=== PATIENT | male | born 1995 | race Caucasian/White ===

== ENCOUNTER 2024-02-19 12:48 | Inpatient (IN) ==
--- NOTE | 2024-02-19 12:58 | Emergency Department Note ---
Impression & Plan Seizure, Acidosis, Hypermagnesuria ED Provider Note NAME: JANIE JASON AGE: 28 SEX: M : 1995 ARRIVES VIA: Ambulance INFORMANT: Patient ED PROVIDER(S): Savage Aldridge DO CHIEF COMPLAINT: seizure HPI: Patient is a 28-year-old male who presents to the ER for seizure. Per EMS who provides the history patient had a seizure on his way to work and another 1 while at work. EMS was transporting him and he had a third seizure. He did not receive any medications. Seizures all lasted under a minute. History is limited as patient is postictal at this time. Patient later woke up and notes that he feels postictal. This does not feel different than his typical seizures. He notes he did have several. Last seizure he thinks was somewhere in September. Mom provides additional history and believes that he did have 1 in early January. Patient is unsure of whether he took 500 of Keppra unintentionally instead of the prescribed 1 g. Otherwise he feels as though he has been taking his medications. ADDITIONAL HISTORY OBTAINED: Per HPI Chronic Medical/Social Conditions Affecting Care: Per HPI PAST MEDICAL HISTORY:See Below PAST SURGICAL HISTORY:See Below FAMILY HISTORY:See Below SOCIAL HISTORY:See Below HOME MEDICATIONS:See Below ALLERGIES:See Below VITALS:See Below PHYSICAL EXAMINATION: GENERAL: Sitting up in bed, alert, confused, moving all extremities EYE EXAM: normal conjunctiva. PERRL and EOM's grossly intact. OROPHARYNX: mucous membranes are moist NECK: supple, no nuchal rigidity, no adenopathy, non-tender LUNGS: Clear to auscultation. Normal chest wall mechanics HEART: no murmurs, S1 normal and S2 normal ABDOMEN: abdomen soft, non-tender, normo-active bowel sounds, no masses, no rebound or guarding. BACK: Back is symmetrical on inspection and there is no deformity, no midline tenderness, no CVA tenderness. SKIN: no rashes and no bruising UPPER EXTREMITIES: upper extremities are grossly normal. LOWER EXTREMITIES: No pitting edema. NEURO EXAM: Oriented to person but not place or time, cranial nerves II-XII grossly intact, normal speech, no gross weakness of arms, no gross weakness of legs. MEDICAL DECISION MAKING: Patient is a 13Y 8-year-old male with a past medical history of seizure disorder who presents to the ER for the above-stated complaint. IV was established medicos obtained. Labs show no significant leukocytosis or anemia. BMP with a CO2 of 15 which was gap likely secondary to recent seizure. LFTs bilirubin is unremarkable. Troponin was negative lipase is normal. Patient was given a gram of Keppra. Updated at bedside. With the 3 seizures today patient was discussed with the hospitalist for further evaluation management treatment. Consults/Care Managements Discussions: Per MDM Triage Nursing notes reviewed. Limited review of prior medical records performed Vital Signs: reviewed and remarkable for no significant abnormalities Differential diagnosis: Differential diagnosis includes etiologies such as infection, hypoglycemia, electrolyte abnormalities, cardiac sources, intracerebral event, trauma, toxicologic, neurologic, as well as others were entertained. ER treatment provided: See below Diagnostics interpreted by me include EKG and cardiac monitoring as listed below: -Cardiac Monitoring: An order was placed for continuous cardiac monitoring. The monitor shows a rate of 70 with sinus rhythm. -ECG: Sinus rhythm rate of 105 Normal axis No PVCs QTc 452 -Laboratory studies:Interpreted by me as stated above in MDM and shown below. Imaging studies: Xrays: As interpreted by me: Portable AP upright 1 view of the chest shows no focal infiltrate CTs show: none Procedures:none Critical Care: None Past Med/Surg History Problem List (Updated 02/19/24 @ 16:29 by Savage Aldridge DO) Hypermagnesuria (Acute) Acidosis (Acute) Asthma Seizure (Acute) Seizure disorder Depression Medical History No significant past medical history Surgical History No significant past surgical history Family History Father Hyperthyroidism Grandmother Breast cancer Grandfather (Maternal) Brain cancer Lung cancer Grandfather Afib Anxiety Depression Alcohol abuse Grandmother Hypertension Lung cancer Dyslipidemia Mother Anxiety Social History (System 02/19/24 @ 16:00 by Radha Mcmanus) Smoking Status: Current every day smoker Tobacco Type: Cigarettes and E-cigarettes / Vaping Second Hand Exposure: No; Do You Dip or Chew Tobacco: No; Hx Alcohol Use: Yes Hx Substance Use: Yes Preferred Language: Tuvaluan Communication Ability: Effective Visual Impairment: Limited Hearing Ability: Normal marital status: Single Current Living Situation: Alone current occupational status: employed Feels Safe at Home: Yes Childhood Exposure to Second-Hand Smoke: No Diet: regular Dental Care, Regularly: Yes Physical Activity Frequency: Does not Exercise Physical Activity Frequency Comment: active lifestyle Seatbelt Use: always Sunscreen Use: No (while at the beach) Allergies Allergies Allergy/AdvReac Type Severity Reaction Status Date / Time No Known Allergies Allergy Unverified 02/19/24 16:00 Home Meds Home Medications Medication Instructions Recorded Confirmed albuterol sulfate 90 mcg/actuation 2 puff inhalation QID PRN 11/05/18 10/03/23 aerosol inhaler Shortness Of Breath Or Wheezing montelukast 10 mg tablet 10 mg PO PM 11/05/18 10/03/23 (Singulair) albuterol sulfate 90 mcg/actuation 2 puff inhalation Q4H PRN 02/19/24 02/19/24 aerosol inhaler sob/wheezing levetiracetam 1,000 mg tablet 1,000 mg PO BID 02/19/24 02/19/24 montelukast 10 mg tablet 10 mg PO PM 02/19/24 02/19/24 Results & Data (ED) Vital Signs Vital Signs - 24 hr 02/19/24 13:06 02/19/24 13:06 02/19/24 13:06 Temperature 36.8 C Temperature Source Oral Pulse Rate 100 H 100 H Pulse Rate [Apical] Pulse Rhythm Regular Regular Pulse Rhythm [Apical] Pulse Strength Normal Pulse Strength [Apical] Respiratory Rate 20 20 Respiratory Effort / Characteristics Non-Labored Spontaneous Respiratory Depth Normal Respiratory Pattern Regular Blood Pressure 130/85 Blood Pressure [Left Arm] Blood Pressure Mean 100 Blood Pressure Mean [Left Arm] Blood Pressure Position Semi-fowlers Blood Pressure Position [Left Arm] Pulse Oximetry 98 96 96 Oxygen Delivery Method Room Air Room Air Room Air Sepsis Recent Fever Within 48 Hours No Sepsis New/Unexplained Change in Mental Status N/A Sepsis Action Taken by Nursing No Action Required 02/19/24 13:13 02/19/24 14:34 02/19/24 15:46 Temperature Temperature Source Pulse Rate 104 H Pulse Rate [Apical] 96 H 69 Pulse Rhythm Pulse Rhythm [Apical] Regular Regular Pulse Strength Pulse Strength [Apical] Normal Normal Respiratory Rate 18 14 Respiratory Effort / Characteristics Non-Labored Spontaneous Non-Labored Spontaneous Respiratory Depth Normal Normal Respiratory Pattern Regular Regular Blood Pressure Blood Pressure [Left Arm] 129/75 Blood Pressure Mean Blood Pressure Mean [Left Arm] 93 Blood Pressure Position Blood Pressure Position [Left Arm] Lying Pulse Oximetry 99 99 Oxygen Delivery Method Room Air Room Air Sepsis Recent Fever Within 48 Hours Sepsis New/Unexplained Change in Mental Status Sepsis Action Taken by Nursing Laboratory Data 02/19/24 13:00 02/19/24 13:00 Lab Results 02/19/24 02/19/24 02/19/24 Range/Units 13:00 13:06 15:13 WBC 6.94 (4.8-10.8) K/ul RBC 5.20 (4.70-6.10) M/uL Hgb 15.0 (14.0-18.0) g/dl POC Hgb 15.0 (14.0-18.0) g/dl Hct 45.0 (42.0-52.0) % POC Hct 44 (42-52) % MCV 86.5 (80.0-100.0) fL MCH 28.8 (25.0-34.0) pg MCHC 33.3 (32.0-36.0) g/dL RDW Std Deviation 38.7 (36.4-46.3) fL RDW Coeff of Rosario 12.4 (11.5-14.5) % Plt Count 341 (130-400) K/uL MPV 8.9 L (9.4-12.4) fL Immature Gran % (Auto) 0.3 % Neut % (Auto) 53.9 % Lymph % (Auto) 30.5 % [place] % (Auto) 9.1 % Eos % (Auto) 5.6 % Baso % (Auto) 0.6 % Neut # (Auto) 3.74 (1.40-6.50) K/uL Lymph # (Auto) 2.12 (1.20-3.40) K/uL [place] # (Auto) 0.63 H (0.11-0.59) K/uL Eos # (Auto) 0.39 (0.00-0.50) K/uL Baso # (Auto) 0.04 (0.00-0.20) K/uL Immature Gran # (Auto) 0.02 (0.01-0.20) K/uL POC Sodium 140 (135-144) mmol/L Sodium 140 (136-145) mmol/L POC Potassium 4.0 (3.3-5.0) mmol/L Potassium 4.0 (3.5-5.1) mmol/L POC Chloride 105 (101-112) mmol/L Chloride 103 (98-107) mmol/L Carbon Dioxide 15 L (21-32) mmol/L POC Total CO2 14 L (24-31) mmol/L Anion Gap 22 H (3-11) POC Anion Gap 26.0 H (16-25) mmol/L POC BUN 8 (7-18) mg/dl BUN 10 (6-23) mg/dl Creatinine 1.09 (0.6-1.4) mg/dl POC Creatinine 1.0 (0.6-1.3) mg/dl Est Cr Clr Drug Dosing 98.5 ml/min Est GFR ( Amer) 107.2 ml/min Est GFR (Non-Af Amer) 92.5 ml/min BUN/Creatinine Ratio 9.2 L (10-20) Glucose 86 (70-99(Fasting)) mg/dl POC Glucose (other) 89 (70-99) mg/dl Lactate 1.1 (0.4-2.0) mmol/L Calcium 9.5 (8.6-10.3) mg/dl POC Ioniz Calcium [place] 1.13 (1.12-1.32) mmol/l Magnesium 2.5 H (1.7-2.4) mg/dl Total Bilirubin 0.7 (0.2-1.0) mg/dl AST 21 (13-39) U/L ALT 20 (7-52) U/L Alkaline Phosphatase 54 (34-104) U/L Troponin I High Sens 2.4 (0-20) pg/ml Total Protein 8.3 (6.0-8.3) gm/dl Albumin 5.2 H (3.4-5.0) gm/dl Globulin 3.1 (2.5-4.0) gm/dl Albumin/Globulin Ratio 1.7 (0.9-2) Lipase 25 (11-82) U/L Administered Medications Discontinued Medications Sodium Chloride (Nss) 1,000 mls @ 999 mls/hr IV .Q1H1M LARRY Stop: 02/19/24 15:15 Last Admin: 02/19/24 15:08 Dose: 999 mls/hr Documented By: Infusion: 02/19/24 14:21 Dose: Infused Documented By: Admin: 02/19/24 13:20 Dose: 999 mls/hr Documented By: VICKI Levetiracetam (Levetiracetam 500 Mg/5 Ml Vial) 1,000 mg IV NOW STA Stop: 02/19/24 13:09 Last Admin: 02/19/24 13:20 Dose: 1,000 mg Documented By: VICKI Imaging Data Radiologist's Impression: Chest X-Ray 02/19/24 12:55 XR chest 1V portable HISTORY: 28 years-old Male Chest pain, nonspecific COMPARISON: None TECHNIQUE: AP view of the chest FINDINGS: Cardiomediastinal and hilar silhouettes are within normal limits. No pneumothorax, pleural effusion, airspace consolidation or pulmonary edema. Bones appear grossly intact. IMPRESSION: No acute process. ACT 112: Negative or not required by law. The above report was generated using voice recognition software. It may contain grammatical, syntax or spelling errors. Electronically signed by: Tay Archer M.D. 02/19/2024 1:27 PM Discharge Plan Visit Data Chief Complaint: Seizure ED Provider: Savage Aldridge Discharge Problem: Seizure, Acidosis, Hypermagnesuria Forms Stand Alone Forms: [facility] Prescriptions Prescriptions: No Action montelukast [Singulair] 10 mg Tablet 10 mg PO PM albuterol sulfate 90 mcg/actuation Hfa Aerosol Inhaler 2 puff INHALATION QID PRN (Reason: Shortness Of Breath Or Wheezing) montelukast 10 mg tablet 10 mg PO PM albuterol sulfate 90 mcg/actuation HFA aerosol inhaler 2 puff INHALATION Q4H PRN (Reason: sob/wheezing) levetiracetam 1,000 mg tablet 1,000 mg PO BID Rx Instructions: Last filled in September 2023 Referrals Referrals: PCP,NO [Primary Care Provider] -
[2024-02-19 13:19] LABS: iSTAT Ionized Calcium 1.13 mmol/l (1.12-1.32)
[2024-02-19] MEDS: SODIUM CHLORIDE 0.9% 1,000 ML IV SCH (13:20)
[2024-02-19] MEDS: levETIRAcetam 500 MG/5 ML VIAL IV STA (13:20)
--- NOTE | 2024-02-19 13:28 | XRay Report ---
XR chest 1V portable HISTORY: 28 years-old Male Chest pain, nonspecific COMPARISON: None TECHNIQUE: AP view of the chest FINDINGS: Cardiomediastinal and hilar silhouettes are within normal limits. No pneumothorax, pleural effusion, airspace consolidation or pulmonary edema. Bones appear grossly intact. IMPRESSION: No acute process. ACT 112: Negative or not required by law. The above report was generated using voice recognition software. It may contain grammatical, syntax o r spelling errors. Electronically signed by: Tay Archer M.D. 02/19/2024 1:27 PM
[2024-02-19 13:30] LABS: Basophils # (auto) 0.04 K/uL (0.00-0.20); Basophils % (auto) 0.6 %; Eosinophils # (auto) 0.39 K/uL (0.00-0.50); Eosinophils % (auto) 5.6 %; Immature Granulocytes # (auto) 0.02 K/uL (0.01-0.20); Immature Granulocytes % (auto) 0.3 %; Lymphocytes # (auto) 2.12 K/uL (1.20-3.40); Lymphocytes % (auto) 30.5 %; Mean Corpuscular Hemoglobin 28.8 pg (25.0-34.0); Mean Corpuscular Hgb Conc 33.3 g/dL (32.0-36.0); Mean Corpuscular Volume 86.5 fL (80.0-100.0); Mean Platelet Volume 8.9 fL (9.4-12.4); Monocytes # (auto) 0.63 K/uL (0.11-0.59); Monocytes % (auto) 9.1 %; Neutrophils # (auto) 3.74 K/uL (1.40-6.50); Neutrophils % (auto) 53.9 %; Platelet Count 341 K/uL (130-400); RDW Coefficient of Variation 12.4 % (11.5-14.5); RDW Standard Deviation 38.7 fL (36.4-46.3); White Blood Count 6.94 K/ul (4.8-10.8)
[2024-02-19 13:43] LABS: Albumin Globulin Ratio 1.7 (0.9-2); Albumin Level 5.2 gm/dl (3.4-5.0); BUN Creatinine Ratio 9.2 (10-20); Bilirubin,Total 0.7 mg/dl (0.2-1.0); Calcium 9.5 mg/dl (8.6-10.3); Creatinine Clr Calc Pharmacy 98.5 ml/min; Est GFR (African American) 107.2 ml/min; Est GFR (Non-African American) 92.5 ml/min; Globulin 3.1 gm/dl (2.5-4.0); Total Protein 8.3 gm/dl (6.0-8.3)
[2024-02-19 13:48] LABS: Troponin I High Sensitivity 2.4 pg/ml (0-20)
[2024-02-19] MEDS ORDERED: LORazepam 2 MG/1 ML VIAL IV PRN (15:00)
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
--- NOTE | 2024-02-19 15:12 | Electrocardiogram Report ---
Test Reason : Blood Pressure : */* mmHG Vent. Rate : 105 BPM Atrial Rate : 105 BPM P-R Int : 122 ms QRS Dur : 104 ms QT Int : 342 ms P-R-T Axes : 80 84 59 degrees QTcB Int : 452 ms Sinus tachycardia RSR' or QR pattern in V1 suggests right ventricular conduction delay Nonspecific ST abnormality Abnormal ECG No previous ECGs available Confirmed by Malachi Raya ([id number]) on 02/19/2024 3:12:11 PM Referred By: REFERRED SELF Confirmed By: Malachi Raya
[2024-02-19 16:14] LABS: Magnesium 2.5 mg/dl (1.7-2.4)
[2024-02-19] MEDS ORDERED: ACETAMINOPHEN 325 MG TAB PO PRN (17:18)
[2024-02-19] MEDS ORDERED: ALBUTEROL HFA 8 GM INHALER INH PRN (17:18)
[2024-02-19] MEDS: GADOBUTROL 65ML VIAL IV ONE (20:08)
[2024-02-19 20:40] LABS: Amphetamines+Metham, Urine Pos (Neg); Barbiturates, Urine Neg (Neg); Benzodiazepine, Urine Neg (Neg); Cocaine, Urine Pos (Neg); Fentanyl, Urine Neg (Neg); MDMA (Ecstacy), Urine Neg (Neg); Marijuana, Urine Pos (Neg); Methadone, Urine Neg (Neg); Opiate, Urine Neg (Neg); Phencyclidine, Urine Neg (Neg)
[2024-02-19] MEDS: levETIRAcetam IV 1,000 MG in 0.9 % SODIUM CHLORIDE 100 ML IV SCH (21:14)
[2024-02-19] MEDS: MONTELUKAST SODIUM 10 MG TABLET PO SCH (21:16)
--- NOTE | 2024-02-19 22:25 | Magnetic Resonance Report ---
Exam(s): MRI HEAD IV Amt: 7CC GADAVIST EXAM: MR Head With Intravenous Contrast CLINICAL HISTORY: Reason for exam: Recurrent seizures. TECHNIQUE: Magnetic resonance images of the head/brain with intravenous contrast in multiple planes. CONTRAST: Patient received 7CC GADAVIST of IV contrast COMPARISON: MRI brain 10 04 2023. FINDINGS: Brain: Unremarkable. No mass. No hemorrhage. No acute infarct. Ventricles: Unremarkable. No ventriculomegaly. Bones/joints: Unremarkable. No acute fracture. Sinuses: Unremarkable as visualized. No acute sinusitis. Mastoid air cells: Unremarkable as visualized. No mastoid effusion. Orbits: Unremarkable as visualized. IMPRESSION: No acute intracranial abnormality. Electronically signed by: Darci Damon MD 02/19/24 22:25 PM
[2024-02-20 03:39] VITALS: RESP 18
[2024-02-20 06:12] LABS: Basophils # (auto) 0.04 K/uL (0.00-0.20); Basophils % (auto) 0.7 %; Eosinophils # (auto) 0.38 K/uL (0.00-0.50); Eosinophils % (auto) 6.2 %; Hematocrit (blood only) 36.9 % (42.0-52.0); Hemoglobin 13.1 g/dl (14.0-18.0); Immature Granulocytes # (auto) 0.01 K/uL (0.01-0.20); Immature Granulocytes % (auto) 0.2 %; Lymphocytes # (auto) 1.93 K/uL (1.20-3.40); Lymphocytes % (auto) 31.5 %; Mean Corpuscular Hemoglobin 29.2 pg (25.0-34.0); Mean Corpuscular Hgb Conc 35.5 g/dL (32.0-36.0); Mean Corpuscular Volume 82.4 fL (80.0-100.0); Mean Platelet Volume 8.8 fL (9.4-12.4); Monocytes # (auto) 0.58 K/uL (0.11-0.59); Monocytes % (auto) 9.5 %; Neutrophils # (auto) 3.18 K/uL (1.40-6.50); Neutrophils % (auto) 51.9 %; Platelet Count 257 K/uL (130-400); RDW Coefficient of Variation 12.4 % (11.5-14.5); RDW Standard Deviation 37.6 fL (36.4-46.3); Red Blood Count 4.48 M/uL (4.70-6.10); White Blood Count 6.12 K/ul (4.8-10.8)
[2024-02-20 06:19] LABS: Calcium 8.7 mg/dl (8.6-10.3); Creatinine Clr Calc Pharmacy 137.6 ml/min; Est GFR (African American) 140.5 ml/min; Est GFR (Non-African American) 121.2 ml/min; Magnesium 2.2 mg/dl (1.7-2.4); Potassium 3.8 mmol/L (3.5-5.1)
[2024-02-20 08:00] VITALS: O2SAT 97
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
[2024-02-20 11:27] VITALS: TEMP 98.1
[2024-02-20 15:38] VITALS: BP 129/75; PULSE 67
[2024-02-20] MEDS: INFLUENZA VACC TS2024-25(6m+)/PF (IIV3) 0.5mL Syr IM ONE (17:11)
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
[2024-02-22 14:27] LABS: Amphetamine Urine, Confirm 1510 ng/mL (<250); Cocaine, Urine >20000 ng/mL (<100); Marijuana Quant, GCMS Urine 55 ng/mL (<5); Methamphetamine, Ur Confirm 7120 ng/mL (<250)
== END 2024-02-20 16:09 | disposition home or self-care (01) | DRG 101 ==
LOC: EDBD → MERGE 12:48 → ED 12:48 → SUATTDRO 15:08 → 4W 15:08